=== PATIENT | female | born 1985 | race Caucasian/White ===

== ENCOUNTER 2017-01-25 06:00 | Inpatient (IN) | payer BC ==
[2017-01-25] MEDS ORDERED: EPSOM SALT 454 GM TP PRN (06:27)
[2017-01-25] MEDS ORDERED: OXYTOCIN/RINGERS LACTATE 1,000 ML IV PRN (06:27)
[2017-01-25] MEDS ORDERED: IBUPROFEN 600 MG TAB PO PRN (06:27)
[2017-01-25] MEDS ORDERED: LR 1,000 ML IV PRN (06:27)
[2017-01-25] MEDS ORDERED: OLIVE OIL 118 ML BTL MISC PRN (06:27)
[2017-01-25] MEDS ORDERED: TERBUTALINE SULFATE 1 MG/ML VIAL IV PRN (06:27)
[2017-01-25 06:46] LABS: % IMMATURE GRANULYOCYTES 1.5 % (0.0-1.1); ABSOLUTE IMMATURE GRANULOCYTES 0.27 10^3/uL (0.00-0.10); ADD DIFF? NO; ADD MORPH? NO; ADD SCAN? NO; ATYPICAL LYMPHOCYTE FLAG 0 (0-99); FRAGMENT RBC FLAG 0 (0-99); HEMATOCRIT 38.9 % (38.0-47.0); HEMOGLOBIN 13.4 g/dL (12.6-16.3); LEFT SHIFT FLG 20 (0-99); LIPEMIA HEMOLYSIS FLAG 90 (0-99); MEAN CELL HEMOGLOBIN CONCENTR. 34.4 g/dL (32.4-36.7); MEAN CELL VOLUME 87.2 fL (81.5-99.8); MEAN PLATELET VOLUME 12.3 fL (8.7-11.7); PLATELET CLUMPS FLAG 0 (0-99); PLATELET COUNT 188 10^3/uL (150-400); RED BLOOD CELL COUNT 4.46 10^6/uL (4.18-5.33)
[2017-01-25] MEDS ORDERED: OLIVE OIL 118 ML BTL ONE (07:30)
[2017-01-25] MEDS ORDERED: LIDOCAINE 1% 300 MG/30 ML SDV ONE (07:30)
[2017-01-25] MEDS ORDERED: OXYTOCIN 10 UNIT/ML VIAL ONE (07:31)
[2017-01-25] MEDS ORDERED: MISOPROSTOL 200 MCG TAB ONE (07:31)
[2017-01-25] MEDS ORDERED: OXYTOCIN/LR *STANDARD DOSE PROTOCOL IV SCH (08:00)
[2017-01-25] MEDS ORDERED: OXYTOCIN/LR *LOW DOSE PROTOCOL IV SCH (08:00)
--- NOTE | 2017-01-25 09:20 | OBPROG ---
OBG Labor Progress Note Assessment/Plan: Assessment: 31 y/o @ 39 1/7 wks for IOL secondary to borderline oligo Plan: Cont current management Pitocin at 4 mu/min Vernon balloon in place. pt to tug on it FHTs - Cat I tracing Pt to eat a light breakfast 01/25/17 09:21 Subjective: Pt seen and examined. Doing well, no complaints. She is having mild cramping. Denies any LOF or VB. Good FM. Wants to eat breakfast. Objective: 01/25/17 06:35 Patient ABO/Rh A POSITIVE 01/25/17 06:35 Crowder Current Contraction Pattern: Irregular FHR (bpm): 130 FHR Pattern Variability: Moderate FHR Category: 1 Membranes: Intact Oxytocin Orders Assessment - Pre-Induction/Augmentation Assessment Indication: Borderline oligo Presentation: Vertex Gestational Age: 39 week(s) and 1 day(s) Gestational Age Determined By: Last Menstral Period (and confirmed by first trimester u/s) Estimated Weight: 2501-3400g Membrane Status: Intact Current Sterile Vaginal Exam (SVE): Deferred; vernon balloon in place Current Contraction Pattern: Irregular - Heart Rate Pattern Crowder FHR Baseline (bpm): 130 FHR Category: 1 FHR Pattern Variability: Moderate FHR Accelerations: Present - Vela's Score Dilation: 1-2cm Effacement: 0-30 Station: -3 Cervix: Medium Cervix Position: Posterior Vela Score Total: 2 - Induction/Augmentation Consent Risks/Benefits of Procedure Reviewed/Pt Agrees to Proceed: Yes ICD10 Worksheet Patient Problems: Problems Problem Status Onset Oligohydramnios Acute - ICD10 Problem Qualifiers (1) Oligohydramnios Qualifiers: Fetus number: single or unspecified fetus Trimester: third trimester Qualified Code(s): O41.03X0 - Oligohydramnios, third trimester, not applicable or unspecified
--- NOTE | 2017-01-25 10:18 | GHP ---
[f rep st] HISTORY AND PHYSICAL DATE OF ADMISSION: 01/25/2017 ADMITTING DIAGNOSES: 1. Intrauterine at 39 weeks 1/7 days. 2. Borderline oligohydramnios. HISTORY OF PRESENT ILLNESS: Patient is a 31-year-old, 1, para 0, at 39 and 1/7 weeks with an estimated due date 01/31/2017 by last menstrual period 12/2015 and confirmed by first-trimester ultrasound at 7 weeks. Patient presented to the office yesterday for a routine visit. She had an ultrasound done showing estimated weight of 40% previously was 13% and an LESLIE of 5.6 cm. Patient denies any contractions, leakage of fluid, or vaginal bleeding. States there is good movement. We discussed with borderline oligohydramnios, and a grade 3 placenta and her being term 39+ weeks recommended induction of delivery. Risks, benefits and alternatives discussed with the patient; she understands all risks and wants to proceed with an induction at this time. Patient was examined in the office, found to be 1 cm dilated, 25% effaced, -2 station. A Quintanilla balloon was placed by my partner, Dr. Rebeca Summers, after a reassuring reactive NST in the office. The patient went home for the night and then came to Labor and Delivery this morning at 6 a.m. for Pitocin. The patient has good care at [facility], and presented at her 1st trimester at 7 weeks. course is uncomplicated. All genetic testing was negative. Patient did receive both Tdap and flu vaccine. In the 3rd trimester, patient was measuring size less than dates and had an ultrasound showing estimated weight 13% with LESLIE of 9. Followup growth scan was at 40 percentile and LESLIE of 5.6 cm. GBS culture is negative. PAST OB HISTORY: Patient is a primigravida. 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 Cycles are every 28 days times 4-6 days. Last menstrual period 04/25/2016. Positive test 05/21/2016. Patient has a history of abnormal Pap smears. She had a colposcopy done showing MARY 1 but no cervical treatment. Patient is +HPV, but denies exposure to any other sexually transmitted diseases. PAST MEDICAL HISTORY: Unremarkable. She fell off horse at 13 years of age and had a severe concussion with short-term memory loss. PAST SURGICAL HISTORY: Colposcopy. Torn ACL at 17 years of age. In 1999, she had a breast augmentation. MEDICATIONS: Include [id number] vitamins. ALLERGIES: Ceclor, sulfa. SOCIAL HISTORY: Patient is . She lives with her . 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 Denies any alcohol or illicit drug use. She socially smoked, but quit in April 2016. FAMILY HISTORY: Maternal grandmother with colon cancer diagnosed at age 50, age 54. Mother with melanoma. LABS: A-positive, antibody negative. RPR nonreactive. Rubella immune. Hepatitis B surface antigen negative. HIV negative. Trio screen negative. Urine culture was negative. Pap test normal. GC, chlamydia cultures negative. Verifi is negative. H and H 12.9, 39.8. One-hour Glucola 98. GBS is negative. REVIEW OF SYSTEMS: A 10-point review of systems is negative. Pertinent positives noted in HPI. PHYSICAL EXAMINATION: VITAL SIGNS: On admission, vital signs are stable. Patient is afebrile. GENERAL: Well nourished, well developed female. Alert and oriented x3. No apparent distress. CARDIOVASCULAR: Regular rate and rhythm. LUNGS: Clear to auscultation bilaterally. Normal breath sounds. ABDOMEN: Gravid, soft, nontender, nondistended. EXTREMITIES: Normal to inspection without calf tenderness or edema. PELVIC: Deferred, Quintanilla balloon is still in place. On the monitor, heart tones are Category 1 tracing, with a baseline of 130 beats per minute. Positive accelerations. No decelerations. Moderate variability. On TOCO, she is dee irregularly. ASSESSMENT: The patient is a 31-year-old 1, para 0, at 39-1/7 weeks, who presents to Labor and Delivery for an induction of labor secondary to borderline oligohydramnios. PLAN: 1. Admit to Labor and Delivery for induction of labor. 2. Start Pitocin per protocol. 3. GBS is negative. No prophylactic antibiotics are needed. 4. Patient desires to go as natural as possible but is not opposed to an epidural. 5. Patient to tug on Quintanilla balloon. /[id number]/MODL MTDD
--- NOTE | 2017-01-25 12:10 | OBPROG ---
OBG Labor Progress Note Assessment/Plan: Assessment: 31 y/o @ 39 1/7 wks for IOL secondary to borderline oligo Plan: Cont current management Pitocin at 14 mu/min, cont to increase per protocol s/p vernon balloon, it was removed FHTs - Cat I tracing AROM - bloody fluid, small amount 01/25/17 12:07 Subjective: Pt has diarrhea at this time, no other complaints. Objective: 01/25/17 06:35 Patient ABO/Rh A POSITIVE 01/25/17 06:35 - SVE Dilation (cm): 4 Effacement (%): 50 Station: -1 ( ) Crowder Current Contraction Pattern: Regular FHR (bpm): 130 FHR Pattern Variability: Moderate FHR Category: 1 Membranes: AROM Amniotic Fluid Color: Bloody (small amount) - Procedures Non-surgical Procedures: Amniotomy - Physical Exam Estimated Weight: 2501-3400g Oxytocin Orders Assessment - Pre-Induction/Augmentation Assessment Presentation: Vertex Gestational Age: 39 week(s) and 1 day(s) Estimated Weight: 2501-3400g ICD10 Worksheet Patient Problems: Problems Problem Status Onset Oligohydramnios Acute - ICD10 Problem Qualifiers (1) Oligohydramnios Qualifiers: Fetus number: single or unspecified fetus Trimester: third trimester Qualified Code(s): O41.03X0 - Oligohydramnios, third trimester, not applicable or unspecified
[2017-01-25] MEDS ORDERED: fentaNYL 2MCG/ML/BUP 0.1% RTU 100 ML BAG EP ONE (17:58)
[2017-01-25] MEDS ORDERED: BUPIVACAINE 0.25% 30 ML SDV ONE ×2 (17:59→18:05)
[2017-01-25] MEDS ORDERED: PHENYLEPHRINE HCL 100 MCG/ML SYR ONE ×2 (17:59→21:51)
--- NOTE | 2017-01-25 18:20 | PREANESOB ---
Obstetric Pre-Anesthesia Info - General Info Proposed Procedure: cse for L and expected : 1 Para: 0 - Info Status: Full Term Monitors: External FHR Baseline (bpm): 130 FHR Pattern: Reassuring - Labor Status Cervical Dilation per last OB SVE: 4 Station per last OB SVE: -1 ( ) Amniotic Fluid Color: Clear Pitocin: In Use PIH: No Magnesium Sulfate in Use: No Indications for Labor Analgesia: Augmentation of Labor, Pain Control Labor Epidural: Proposed Anesthesia ROS: negative Allergies/Adverse Reactions: Allergy/AdvReac Type Severity Reaction Status Date / Time CECLOR Allergy Uncoded 08/06/15 11:06 SULFA Allergy Uncoded 08/06/15 11:06 Home Medications: Medication Instructions Recorded Doxycycline Hyclate [Vibramycin 100 mg PO BID #20 cap 08/06/15 100 MG (*)] Hydrocodone/APAP 5/325 [[place] 1 - 2 tab PO Q4H PRN #10 tab 08/06/15 5/325 (RX)] Ortho Tri-Cyclen Lo 08/06/15 Vit27&Calcium/Iron/FA 1 each PO DAILY 01/25/17 [ Rx 1 Tablet (RX)] Visit Medications: Generic Name Dose Route Start Last Admin Trade Name Freq PRN Reason Stop Dose Admin Lactated Ringer's 1,000 mls @ 0 mls/hr 01/25/17 06:27 Lr IV 07/24/17 06:26 PRN PRN SEE PROTOCOL CONDITIONS Protocol Per Protocol Oxytocin/Lactated Ringer's 1,000 mls @ 150 mls/hr 01/25/17 06:27 Pitocin 20 Units/Lr (Premix) IV PRN PRN Post- bleeding Oxytocin/Lactated Ringer's 500 mls @ 0 mls/hr 01/25/17 08:00 Pitocin 30 Units/Lr (Premix) IV 07/24/17 07:59 CONT LUZMARIA Protocol Per Protocol Oxytocin/Lactated Ringer's 500 mls @ 0 mls/hr 01/25/17 08:00 Pitocin 30 Units/Lr (Premix) IV 07/24/17 07:59 CONT LUZMARIA Protocol Per Protocol Ibuprofen 600 mg 01/25/17 06:27 Motrin PO 07/24/17 06:26 Q6HRS PRN post , inflammation Magnesium Sulfate 454 gm 01/25/17 06:27 Epsom Salt TP 07/24/17 06:26 Q1H PRN perineal discomfort Derby Oil 118 ml 01/25/17 06:27 Sweet Oil MISC 07/24/17 06:26 ONCE PRN preneal massage Terbutaline Sulfate 0.25 mg 01/25/17 06:27 Brethine IV 07/24/17 06:26 ONCE PRN Tachysystole Discontinued Medications Generic Name Dose Route Start Last Admin Trade Name Fransisco PRN Reason Stop Dose Admin Bupivacaine HCl Confirm 01/25/17 17:59 Sensorcaine 0.25% Sdv Administered 01/25/17 18:00 Dose 30 ml .ROUTE .STK-MED ONE Bupivacaine HCl Confirm 01/25/17 18:05 Sensorcaine 0.25% Sdv Administered 01/25/17 18:06 Dose 30 ml .ROUTE .STK-MED ONE Fentanyl/Bupivacaine HCl Confirm 01/25/17 17:58 Fentanyl/Bupivacaine/Ns 2 Mcg/Ml 0.1% (Premix Administered 01/25/17 17:59 Dose 100 ml EP .STK-MED ONE Lidocaine HCl Confirm 01/25/17 07:30 Lidocaine Hcl 1% Administered 01/25/17 07:31 Dose 300 mg .ROUTE .STK-MED ONE Misoprostol Confirm 01/25/17 07:31 Cytotec Administered 01/25/17 07:32 Dose 1,000 mcg .ROUTE .STK-MED ONE Derby Oil Confirm 01/25/17 07:30 Sweet Oil Administered 01/25/17 07:31 Dose 118 ml .ROUTE .STK-MED ONE Oxytocin Confirm 01/25/17 07:31 Pitocin Administered 01/25/17 07:32 Dose 10 unit .ROUTE .STK-MED ONE Phenylephrine HCl Confirm 01/25/17 17:59 Neosynephrine Administered 01/25/17 18:00 Dose 1,000 mcg .ROUTE .STK-MED ONE - Anesthesia History Response to Local Anesthetics: Normal Anesthesia & Operative History: No Prior Problems Family Anesthesia History: Not Applicable - Social History Substance Use/Abuse: Denies - Focused Exam Height/Weight (Nursing): Height 162.56 cm Weight 77.111 kg Respiratory: lungs clear Cardiovascular: regular rate, rhythm ASA Status: II Labs: 01/25/17 06:35 Patient ABO/Rh A POSITIVE 01/25/17 06:35 - Plan Anesthetic Plan: cse, 6 cont/5 bolus q 5 Consent Signed and on Chart: Yes Patient/Guardian Understands and Agrees to Plan: Yes Urgent/Emergent Case: Wing brown completed preop but documented later for safe timely pt care (need for rapid pain relief)
[2017-01-25] MEDS ORDERED: LR 500 ML IV SCH (18:30)
[2017-01-25] MEDS ORDERED: CEFAZOLIN 2 GM/DEXTROSE/100 ML BAG IV ONE (21:09)
[2017-01-25] MEDS ORDERED: CITRIC ACID/SODIUM CITRATE 30 ML UDCUP ONE (21:09)
--- NOTE | 2017-01-25 21:11 | OBPROG ---
OBG Labor Progress Note Assessment/Plan: Assessment: 31 y/o @ 39 1/7 wks for IOL secondary to borderline oligo Plan: s/p epidural FHTs - Cat II strip with later decels and prolonged decels x 2-3 min resuscitation performed Cervical check is unchanged from previous exam Discussed proceeding with PCS secondary to intolerance to labor and arrest of dilation Surgical consents obtained; R/B/A reviewed with pt including but not limited to bleeding, infection and damage to surrounding organs Pt understands all risks and wants to proceed with surgery at this time Abx front desk monitor to OR 01/25/17 21:08 Subjective: Pt is comfortable, s/p epidural. Objective: 01/25/17 06:35 Patient ABO/Rh A POSITIVE 01/25/17 06:35 - SVE Dilation (cm): 6 Effacement (%): 80 Station: -1 (6-7; cervix is swollen) Crowder Current Contraction Pattern: Irregular FHR (bpm): 160 FHR Pattern Variability: Moderate FHR Category: 2 (Intermittent late decels (persistent late decels with Pitocin) ; prolonged decels x 2-3 min; deep variable decels) Membranes: AROM Amniotic Fluid Color: Bloody (small amount) - Procedures Non-surgical Procedures: Amniotomy - Physical Exam Estimated Weight: 2501-3400g Oxytocin Orders Assessment - Pre-Induction/Augmentation Assessment Presentation: Vertex Gestational Age: 39 week(s) and 1 day(s) Estimated Weight: 2501-3400g ICD10 Worksheet Patient Problems: Problems Problem Status Onset intolerance to labor, delivered, current hospitalization Acute Oligohydramnios Acute - ICD10 Problem Qualifiers (1) Oligohydramnios Qualifiers: Fetus number: single or unspecified fetus Trimester: third trimester Qualified Code(s): O41.03X0 - Oligohydramnios, third trimester, not applicable or unspecified (2) intolerance to labor, delivered, current hospitalization
[2017-01-25] MEDS ORDERED: ONDANSETRON 4 MG/2 ML VIAL ONE (21:14)
[2017-01-25] MEDS ORDERED: DEXAMETHASONE 4 MG/ML VIAL ONE (21:14)
[2017-01-25] MEDS ORDERED: LIDO/EPI 2% **for epidural** 20 ML SDV ONE (21:14)
--- NOTE | 2017-01-25 21:50 | PDANEPAE ---
ANE History of Present Illness primary c/s for intol of labor ANE Past Medical History - Pulmonary History Hx Oxygen in Use at Home: No Hx Sleep Apnea: No - Endocrine History Hx Diabetes: No ANE Review of Systems Review of systems is: negative - Exercise capacity Exercise capacity: >=4 METS ANE Patient History - Allergies Allergies/Adverse Reactions: CECLOR Allergy (Uncoded 08/06/15 11:06) SULFA Allergy (Uncoded 08/06/15 11:06) - Home Medications Home medications: home medication list seen and reviewed Home Medications: Ortho Tri-Cyclen Lo 08/06/15 [Last Taken Unknown] Vit27&Calcium/Iron/FA [ Rx 1 Tablet (RX)] 1 each PO DAILY 01/25 [Last Taken Unknown] - NPO status NPO Status: no food or drink >8 hours - Anes Hx Anes Hx: no prior problems - Smoking Hx Smoking Status: Never smoked - Family Anes Hx Family Anes Hx: none ANE Labs/Vital Signs - Labs Result Diagrams: 01/25/17 06:35 - Vital Signs Height: 162.56 cm Weight: 77.111 kg ANE Physical Exam - Airway Neck exam: FROM Mallampati Score: Class 2 Mouth exam: normal dental/mouth exam - Pulmonary Pulmonary: no respiratory distress - Cardiovascular Cardiovascular: regular rate and rhythym - ASA Status ASA Status: II ANE Anesthesia Plan Anesthesia Plan: epidural Urgent/Emergent Case: Wing brown completed preop but documented later for safe timely pt care
[2017-01-25] MEDS ORDERED: fentaNYL 100 MCG/2 ML INJ IVP PRN (21:51)
[2017-01-25] MEDS ORDERED: PHENYLEPHRINE HCL 100 MCG/ML SYR IVP PRN (21:51)
[2017-01-25] MEDS ORDERED: HYDROmorphONE/DILAUDID 1 MG/ML SYR IVP PRN (21:51)
[2017-01-25] MEDS ORDERED: HYDROCODONE/APAP 5/325 TAB PO PRN (21:51)
[2017-01-25] MEDS ORDERED: OXYCODONE/APAP 5/325 TAB PO PRN (21:51)
[2017-01-25] MEDS ORDERED: NALOXONE HCL 0.4 MG/ML INJ IVP PRN (21:51)
[2017-01-25] MEDS ORDERED: OXYTOCIN 100 UNITS/10 ML VIAL ONE (21:51)
[2017-01-25] MEDS ORDERED: MEPERIDINE 25 MG/ML SYR IVP PRN (21:51)
[2017-01-25] MEDS ORDERED: ONDANSETRON 4 MG/2 ML VIAL IVP PRN ×2 (21:51→22:32)
--- NOTE | 2017-01-25 21:51 | POSTANESTH ---
Post Anesthetic Evaluation Cardiovascular Status: Normal, Stable, Similar to Pre-Op Cond Respiratory Status: Normal, Stable, Similar to Pre-op Cond. Level of Consciousness/Mental Status: Can Participate in Eval, Alert and Oriented Pain Control: Adequate, Prn Tx Ordered Nausea/Vomiting Control: Adequate, Prn Tx Ordered Complications Possibly Related to Anesthesia: None Noted
[2017-01-25 22:10] LABS: BASE EXCESS CORD -3.1 mEq/L (-13.6--3.2); CORD BLOOD PCO2 45.2 mmHg (37-60); PH ARTERIAL CORD BLOOD 7.32 (7.10-7.37)
[2017-01-25 22:16] LABS: PH VENOUS CORD BLOOD 7.3 (7.20-7.42)
[2017-01-25] MEDS ORDERED: PROMETHAZINE HCL 25 MG/ML INJ IVP PRN (22:24)
[2017-01-25] MEDS ORDERED: MAGNESIUM HYDROXIDE 30 ML UDCUP PO PRN (22:24)
[2017-01-25] MEDS ORDERED: BISACODYL 10 MG SUPP PR PRN (22:24)
[2017-01-25] MEDS ORDERED: LACTULOSE 20 GM/30 ML UDCUP PO PRN (22:24)
[2017-01-25] MEDS ORDERED: POLYETHYLENE GLYCOL 3350 17 GM PKT PO PRN (22:24)
--- NOTE | 2017-01-25 22:27 | OBDEL ---
Info Type: Primary GBS+: No Indications for Delivery: Oligohydramnios Vaginal Delivery - Labor and Delivery Onset of Contractions Date: 01/25/17 Onset of Contractions Time: 14:00 Non-surgical Procedures: Amniotomy Cord Gases: Cord Gases Cord Blood PCO2 45.2 mmHg (37-60) 01/25/17 21:44 Cord Base Excess -3.1 mEq/L (-13.6--3.2) H 01/25/17 21:44 Cord ABG pH 7.32 (7.10-7.37) 01/25/17 21:44 Cord VBG pH 7.30 (7.20-7.42) 01/25/17 21:44 Operative Report - Delivery Pre-op Diagnoses: intolerance to labor; Arrest of dilation Post-op Diagnoses: intolerance to labor; Arrest of dilation Nulliparous Prior to Delivery: Yes Presentation at Delivery: Vertex Procedure: Low Transverse Surgeon: Bette Sierra Director Cloud Transformation: Sarah Beth Moore Anesthesiologist: Gonzalez Ochoa Head Inspector And Center Marker/CARD TENDER: Michelle Ritchie L&D Analgesia/Anesthesia Type: Epidural Complications: None Findings: Grossly normal appearing uterus, tubes and ovaries. Placenta intact with 3-vc. IV Fluid (ml): 2,100 EBL: 800cc OU: 500 cc clear urine Cord Gases: Cord Gases Cord Blood PCO2 45.2 mmHg (37-60) 01/25/17 21:44 Cord Base Excess -3.1 mEq/L (-13.6--3.2) H 01/25/17 21:44 Cord ABG pH 7.32 (7.10-7.37) 01/25/17 21:44 Cord VBG pH 7.30 (7.20-7.42) 01/25/17 21:44 Data Crowder Delivery Date: 01/25/17 Delivery Time: 21:44 SHAUN: 01/31/17 Gestational Age: 39 week(s) and 1 day(s) Sex of Infant: Male Score (1 Min): 8 Score (5 Min): 8 ICD10 Worksheet Patient Problems: Problems Problem Status Onset intolerance to labor, delivered, current hospitalization Acute Oligohydramnios Acute - ICD10 Problem Qualifiers (1) Oligohydramnios Qualifiers: Fetus number: single or unspecified fetus Trimester: third trimester Qualified Code(s): O41.03X0 - Oligohydramnios, third trimester, not applicable or unspecified (2) intolerance to labor, delivered, current hospitalization
--- NOTE | 2017-01-26 04:35 | GOP ---
[f rep st] OPERATIVE REPORT DATE OF OPERATION: 01/25/2017 SURGEON: Bette Sierra DO DOUBLE NEEDLE OPERATOR LOCKSTITCH: BAUTISTA Haro. ANESTHESIA: Epidural. PREOPERATIVE DIAGNOSIS: 1. Intrauterine at 39-1/7 weeks for an induction of labor secondary to borderline oligohydramnios 2. intolerance to labor. 2. Arrest of dilation. POSTOPERATIVE DIAGNOSIS: 1. Intrauterine at 39-1/7 weeks for an induction of labor secondary to borderline oligohydramnios 2. intolerance of labor. 3. Arrest of dilation. PROCEDURE PERFORMED: Primary low transverse section. FINDINGS: Grossly normal-appearing uterus, tubes, ovaries bilaterally. Placenta intact with 3-vessel cord. A viable male , Apgars of 8, 8 and cord gases of arterial 7.3 and venous 7.3. ESTIMATED BLOOD LOSS: 800 cc. INDICATIONS: Patient is a 31-year-old, 1, para 0, with estimated due date 01/31/2017, by last menstrual period 04/25/2016, and confirmed by first- trimester ultrasound, who presents for induction of labor, secondary to borderline oligohydramnios. Patient was seen in the office yesterday for routine visit, had a followup growth ultrasound done, showing estimated weight 40%, previously 13%, and an LESLIE of 5.6. Patient underwent an NST which was reactive and then had Quintanilla balloon placed since she was only 1 cm dilated and was sent home. Patient then presented this morning to L&D for Pitocin. We got to 28 mU of Pitocin. The patient arrested at 6 cm and there was a intolerance to labor with intermittent late decels, prolonged decelerations, and deep variable decelerations. Discussed proceeding with a secondary to intolerance to labor and arrest of dilation. Surgical consents were obtained. Risks, benefits, alternatives reviewed with the patient. Patient understands all risks at this time and wants to proceed with surgery. DESCRIPTION OF PROCEDURE: The patient was taken to the operating room, where her epidural was dosed and found to be adequate. She was prepped and draped in the dorsal supine position with a leftward tilt. A Quintanilla catheter was placed in her bladder. After adequate anesthesia was assured, a transverse skin incision was made with a scalpel, and carried through to the underlying fascia with the Bovie. Fascia was incised in midline. Fascial incision was extended laterally with the [place] scissors. Superior aspect of the fascial incision was grasped with the Justin clamps, elevated, and rectus muscles dissected off bluntly and sharply with [place]a scissors. Inferior aspect of the fascial incision , in a similar fashion, was grasped with Justin clamps, elevated, and rectus muscles were dissected off sharply. Rectus muscles were in the midline. Peritoneum was entered bluntly. Incision was extended superior and inferiorly with good visualization of the bladder. Bladder blade was then inserted. Vesicouterine peritoneum was grasped with the pickups, entered sharply with Metzenbaum scissors. Incision was extended laterally. Then, bladder flap was created digitally. The uterus was incised in a transverse fashion with a knife. There was minimal amniotic fluid upon entry into the uterine cavity. Incision was extended anterior and posteriorly. The was then delivered vertex atraumatically. No nuchal cord was noted. The cord was clamped x 2 and cut. The was handed off to the awaiting nurse practitioner. Cord blood gases as well as cord blood were sent. Placenta was then removed spontaneously intact with 3-vessel cord. Uterus was then exteriorized and cleared of all clots and debris. Uterine incision was then repaired with 0 Vicryl in a running, locked fashion. The second imbricating layer of suture was performed with 0 Vicryl. Good hemostasis was noted. Uterus was then returned to the abdomen. Gutters were cleared of all clots and debris. Reinspection of the uterine incision again assured hemostasis. Surgical Lia was placed on the uterine incision for further hemostasis. Rectus muscles were approximated using 2-0 Vicryl in an inverted mattress fashion. The fascia was then closed with 0 Vicryl in a running fashion. Skin was closed with 4-0 Vicryl on a José Miguel needle. Patient tolerated the procedure well. No complications. Sponge, lap, needle, and instrument counts were correct x2. The patient was then taken out of dorsal supine position and taken to the recovery room in stable condition. IV FLUIDS: 2100 cc of LR. URINE OUTPUT: 500 cc of clear urine at the end of procedure. /[id number]/MODL MTDD
[2017-01-26] MEDS: KETOROLAC 30 MG/1 ML SDV IVP PRN ×3 (07:29→19:42)
[2017-01-26] MEDS ORDERED: SENNOSIDES/DOCUSATE SODIUM TAB PO SCH (09:00)
[2017-01-26] MEDS: HYDROCODONE/APAP 5/325 TAB PO PRN ×3 (11:08→19:53)
--- NOTE | 2017-01-26 12:43 | OBPP ---
Progress Note Assessment/Plan: Assessment: 31 y/o POD #1/2 s/p LTCS secondary to intolerance to labor now doing well. Plan: Will advance diet and arrange po pain meds schedule. support. Routine POC. 01/26/17 12:43 Subjective: Pt is doing better today. She continues to have incisional pain and pain on left side of abdomen. She is tolerating reg diet and has had po pain meds which helped her pain. Breast feeding is going well and baby is doing well. Objective: 01/25/17 06:35 Patient ABO/Rh A POSITIVE 01/25/17 06:35 Temp Pulse Resp BP Pulse Ox 37.0 C 62 14 97/54 L 95 01/26/17 08:40 01/26/17 08:40 01/26/17 08:40 01/26/17 08:40 01/26/17 08:40 Uterine Position/Fundal Height: Umbilicus -2 Uterine Tone: Firm Physical Exam - Physical Exam General Appearance: WD/WN, alert, no apparent distress Neck: non-tender, full range of motion, supple Respiratory: chest non-tender, lungs clear, normal breath sounds Cardiac/Chest: regular rate, rhythm Abdomen: normal bowel sounds, incision (c/d/i) Extremities: swelling (2+), Jeovany's sign (neg)
--- NOTE | 2017-01-26 12:50 | SOAPPROG ---
SOAP Progress Note Assessment/Plan: Assessment: Likely area of inadequate coverage by labor GA analgesia, but well covered with surgical C/S anesthesia. Now with possible sensitization +/-myofascial component. Doubt traumatic neuropraxia. Plan: Discussed with patient and reassured her this is likely to improve over the next few days. We will follow in am. 01/26/17 12:50 01/26/17 12:57 Subjective: Called to see patient because of continued LLQ pain following GA placement yesterday. The patient required GA placement for relief of labor pain. A combined SAB/GA was placed yesterday without difficulty; there was no paresthesia or pain reported during placement by the patient at the time, or on my interview today. She reports the onset of soreness and later sharp pain over her LLQ about 20 minutes after GA placement, and during positioning for labor, FHR monitoring. She denies any electrical, lancinating sensations. Her labor pain was otherwise very well controlled. Patient required a section due to intolerance of labor. Surgical anesthesia was established via GA without difficulty, and patient reports complete relief of the LLQ at that point. Patient now reports some incisional pain but also a quite distinct LLQ pain similar to the one experienced yesterday. She describes an area about 10 cm in diameter which has slowly decreased in size. Her pain at rest is currently 0/10, as is the incisional pain , following oral analgesia. She reports almost complete resolution of her numbness and weakness. There are no complaints of headache. Of note, she reports gestational carpal tunnel syndrome. On exam, she has decreased sensation to light touch in the ewelina-incisional area. There is no allodynia or paresthesia over the LLQ except in the ewelina- incisional area. Objective: Vital Signs Temp Pulse Resp BP Pulse Ox 37.0 C 62 14 97/54 L 95 01/26/17 08:40 01/26/17 08:40 01/26/17 08:40 01/26/17 08:40 01/26/17 08:40 Laboratory Results 01/25/17 06:35 01/25/17 01/26/17 01/27/17 05:59 05:59 05:59 Intake Total 6400 Output Total 4050 Balance 2350 ICD10 Worksheet Patient Problems: Problems Problem Status Onset intolerance to labor, delivered, current hospitalization Acute Oligohydramnios Acute
[2017-01-27] MEDS: HYDROCODONE/APAP 5/325 TAB PO PRN ×7 (00:13→22:35)
[2017-01-27] MEDS: IBUPROFEN 600 MG TAB PO PRN ×4 (02:08→20:18)
[2017-01-27] MEDS: DOCUSATE SODIUM 100 MG CAP PO PRN ×2 (09:09→20:18)
--- NOTE | 2017-01-27 12:41 | OBPP ---
Progress Note Assessment/Plan: Assessment: well pain well managed passing gas voiding without difficulty incision well approximated anemic ambulatory Plan:expectant management po day 2 Subjective: Doing well denies difficultys. Passing gas. Pain well managed, well. Voiding without difficulty Objective: 01/25/17 06:35 Patient ABO/Rh A POSITIVE 01/25/17 06:35 Temp Pulse Resp BP Pulse Ox 37.4 C 71 18 96/52 L 95 01/27/17 08:15 01/27/17 08:15 01/27/17 08:15 01/27/17 08:15 01/27/17 08:15 Uterine Position/Fundal Height: At Umbilicus Physical Exam - Physical Exam General Appearance: WD/WN, alert, no apparent distress Respiratory: chest non-tender, lungs clear, normal breath sounds Cardiac/Chest: regular rate, rhythm Abdomen: normal bowel sounds Extremities: normal range of motion, Jeovany's sign (negative bilaterally) DTR- Lower Extremities: Knee (R): 1+, Knee (L): 1+ (no clonus bilaterally) Skin: normal color, warm/dry Neuro/Psych: no motor/sensory deficits, alert, normal mood/affect, oriented x 3
[2017-01-27] MEDS: SIMETHICONE 80 MG TAB CHEW PO PRN ×2 (17:29→20:18)
[2017-01-28] MEDS: HYDROCODONE/APAP 5/325 TAB PO PRN ×6 (02:30→22:46)
[2017-01-28] MEDS: IBUPROFEN 600 MG TAB PO PRN ×3 (02:30→18:48)
[2017-01-28] MEDS: DOCUSATE SODIUM 100 MG CAP PO PRN ×2 (10:07→20:55)
--- NOTE | 2017-01-28 20:00 | OBPP ---
Progress Note Assessment/Plan: Assessment: pod# 3 s/p PLTCS breast feeding Plan: routine post care 01/28/17 19:58 01/28/17 19:58 Subjective: patient is doing well. pain is well controlled. passing gas. had a bowel movement. voiding without difficulty. normal lochia. denies headache and changes in vision. baby having weight loss issues so will stay until tomorrow. breast feeding is going well. Objective: 01/25/17 06:35 Patient ABO/Rh A POSITIVE 01/25/17 06:35 Temp Pulse Resp BP Pulse Ox 36.8 C 75 16 111/71 97 01/28/17 09:00 01/28/17 09:00 01/28/17 09:00 01/28/17 09:00 01/28/17 09:00 Uterine Position/Fundal Height: Umbilicus -2 Uterine Tone: Firm Physical Exam - Physical Exam General Appearance: WD/WN, alert, no apparent distress Respiratory: chest non-tender, lungs clear, normal breath sounds Cardiac/Chest: normal peripheral pulses, regular rate, rhythm Abdomen: normal bowel sounds, hypoactive bowel sounds Extremities: normal range of motion, non-tender, normal inspection, normal capillary refill Back: Normal inspection, Other (incision clean dry and intact) Skin: normal color Neuro/Psych: no motor/sensory deficits, alert, normal mood/affect, oriented x 3
[2017-01-29] MEDS: SIMETHICONE 80 MG TAB CHEW PO PRN (00:32)
[2017-01-29] MEDS: IBUPROFEN 600 MG TAB PO PRN ×2 (00:32→06:43)
[2017-01-29] MEDS: HYDROCODONE/APAP 5/325 TAB PO PRN ×3 (04:24→11:13)
--- NOTE | 2017-01-29 07:58 | OBPP ---
Progress Note Assessment/Plan: Assessment: 1) s/p 1LTCS secondary to intolerance to labor and dilation POD # 4 - pt is stable Plan: Plan for d/c home if baby is discharged Instructions reviewed with pt Rx given for [place] and Motrin Cont PNV and colace Pelvis rest RTC in 2, 4 and 6 weeks 01/29/17 07:58 Objective: 01/25/17 06:35 Patient ABO/Rh A POSITIVE 01/25/17 06:35 Temp Pulse Resp BP Pulse Ox 36.7 C 72 16 116/72 99 01/28/17 20:00 01/28/17 20:00 01/28/17 20:00 01/28/17 20:00 01/28/17 20:00 Uterine Position/Fundal Height: Umbilicus -2 Uterine Tone: Firm Physical Exam - Physical Exam General Appearance: WD/WN, alert, no apparent distress Respiratory: lungs clear, normal breath sounds Cardiac/Chest: regular rate, rhythm Abdomen: normal bowel sounds, non-tender, soft, flatus (+), incision (C/D/I, well approximated) Extremities: non-tender, normal inspection Skin: normal color, warm/dry Neuro/Psych: alert, normal mood/affect, oriented x 3
--- NOTE | 2017-01-29 08:03 | OBGCSDC ---
General Delivery Information - General Info : 1 Para: 1 Delivery Physician/CNM: Bette Sierra Admission Date: 01/25/17 Labs: Patient ABO/Rh A POSITIVE 01/25/17 06:35 Hct 38.9 % (38.0-47.0) 01/25/17 06:35 Vaginal - Diagnosis Presentation at Delivery: Vertex - Operations/Procedures Non-surgical Procedures: Amniotomy L&D Analgesia/Anesthesia Type: Epidural, Spinal - Delivery Number of Prior Sections: 0 Indications for Current Section: Arrest of Dilation, Non-reas. Status Type: Primary Non-surgical Procedures: Amniotomy Surgical Procedures: Low Transverse Intra-op Complications: None EBL: 800cc L&D Analgesia/Anesthesia Type: Epidural - Hospital Course : Uncomplicated. Pain is well controlled. Moderate lochia. No BM yet. Using donor milk and pumping. Data [place] Delivery Date: 01/25/17 Delivery Time: 21:44 SHAUN: 01/31/17 Gestational Age: 39 week(s) and 5 day(s) Sex of Infant: Male [place] Weight (gm): 2868 kg Score (1 Min): 8 Score (5 Min): 8 Discharge Information - Discharge Information Discharge Medications: Ibuprofen, Other (Specify) ([place]) Condition: Good Instruction/Follow Up: Two Weeks, Four Weeks, Six Weeks Discharge Physician/CNM: Bette Sierra
[2017-01-29 08:30] VITALS: BP 103/63; PULSE 63; RESP 18; TEMP 97.6; O2SAT 94
[2017-01-29] MEDS: DOCUSATE SODIUM 100 MG CAP PO PRN (11:13)
== END 2017-01-29 13:25 | disposition home or self-care (01) | DRG 766 ==
LOC: FLD 06:12 → FOB 01-26 01:00
PROVIDERS: ADMIT Obstetrics & Gynecology; ATTEND Obstetrics & Gynecology
PROC: 10D00Z1 Extraction of Products of Conception, Low, Open Approach (ICD-10-PCS; principal; 2017-01-25)
PROC: 3E033VJ Introduction of Other Hormone into Peripheral Vein, Percutaneous Approach (ICD-10-PCS; principal; 2017-01-25)
DX: O41.03X0 Oligohydramnios, third trimester, not applicable or unspecified (principal); O76 Abnormality in fetal heart rate and rhythm complicating labor and delivery; O62.0 Primary inadequate contractions; O99.03 Anemia complicating the puerperium; Z3A.39 39 weeks gestation of pregnancy; Z37.0 Single live birth
CPT/HCPCS: J0690; J1100; J1885; J2370; J2405; J2550; J2590

== ENCOUNTER → 2017-02-05 | Outpatient (CLI) | payer BC | LOC: FLACT 14:15 | PROVIDERS: ATTEND Obstetrics & Gynecology | DX: O92.79 Other disorders of lactation (principal); N64.59 Other signs and symptoms in breast | CPT/HCPCS: G0463 ==

== ENCOUNTER → 2017-02-17 | Outpatient (CLI) | payer BC | LOC: FLACT 12:11 | PROVIDERS: ATTEND Obstetrics & Gynecology | DX: Z39.1 Encounter for care and examination of lactating mother (principal) | CPT/HCPCS: G0463 ==